=== PATIENT | female | born 1965 | race Caucasian/White ===

== ENCOUNTER 2018-09-09 06:31 | Day surgery (SDC) | payer BC ==
[~2018-09-09 06:31] MED LIST: Dextrose 5%-0.45% NaCl 1,000 ML IV SCH; Midazolam 1 MG/ML 2 ML SDV ONE; Sodium Chloride 0.9% 10 ML Syringe FLUSH PRN; fentaNYL 100 MCG/2 ML SDV ONE
[2018-09-09] MEDS ORDERED: Midazolam 1 MG/ML 2 ML SDV IV ONE ×3 (06:32→07:44)
[2018-09-09] MEDS ORDERED: fentaNYL 100 MCG/2 ML SDV IV ONE ×3 (06:32→07:43)
[2018-09-09] MEDS ORDERED: Dextrose 5%-0.45% NaCl 1,000 ML IV SCH (06:45)
--- NOTE | 2018-09-09 08:49 | OR ---
DATE: 09/09/2018 PROCEDURE: Esophagogastroduodenoscopy and multiple pinch biopsies. INSTRUMENT USED: [id number]-HQ190 Olympus video panendoscope. PREMEDICATIONS: Fentanyl 100 mcg intravenous, Versed 2 mg intravenous. The procedure was done under pulse oximetry, BP recording, and monitor technician. INDICATION: The patient with longstanding difficulties of heartburn, dyspepsia, abdominal bloating and pain, unexplained and not responsive to medical measures, long-term PPI. Esophagogastroduodenoscopy is performed for detection of any active erosive lesions, Hale esophagus and/or malignancy also under consideration, H. pylori status to be determined, small bowel biopsies to be obtained if indicated, endoscopic hemostasis therapy if needed. DESCRIPTION OF PROCEDURE: The scope was passed with ease. Adequate visualization of the esophagus was made from proximal to distal areas. No upper esophageal lesions identified. No distal esophageal stricture. No uphill or downhill esophageal varices. No Zuleyma-Gonzales tear. Grade A erosive changes were noted by Durham criteria. No esophageal polyp or tumor mass was identified. Sliding hiatal hernia was noted. Four-quadrant biopsies were taken from the area of Z-line and sent for any histopathologic evidence of intestinal metaplasia. No proximal gastric varices noted. Gastric fundus examination by retroflexion showed no polypoid lesions. No gastric ulcer, malignant mass, or vascular ectasia identified. Multiple pinch biopsies were taken from the gastric antrum and proximal body and sent for pyloric test for H. pylori and histopathology. Duodenal bulb showed no ulcer. Visualized second part of the duodenum was unremarkable. Multiple pinch biopsies, 4 in number, were taken from different areas of the second part of the duodenum, and tissues were also obtained from the duodenal bulb at 9 and 12 o'clock positions and sent for any histopathologic evidence of celiac disease. No bleeding was noted from any of the visualized areas at the completion of the examination. Photographs were taken of the duodenal bulb, gastric antrum, fundus, and distal esophagus. IMPRESSION: 1. Sliding hiatal hernia. 2. Grade A gastroesophageal reflux disease. The patient tolerated the procedure well. [facility] /[id number]
== END 2018-09-09 09:51 | disposition home or self-care (01) ==
LOC: DL.ENDO 06:31
PROVIDERS: ATTEND Internal Medicine Gastroenterology
DX: K29.50 Unspecified chronic gastritis without bleeding (principal); K31.89 Other diseases of stomach and duodenum; K44.9 Diaphragmatic hernia without obstruction or gangrene; K21.9 Gastro-esophageal reflux disease without esophagitis; E03.9 Hypothyroidism, unspecified; F17.210 Nicotine dependence, cigarettes, uncomplicated; E66.09 Other obesity due to excess calories; Z68.33 Body mass index [BMI] 33.0-33.9, adult; Z88.2 Allergy status to sulfonamides; Z88.5 Allergy status to narcotic agent
CPT/HCPCS: 43239; 87077; J2250; J3010; J7042

== ENCOUNTER 2018-09-16 05:22 | Day surgery (SDC) | payer BC ==
[2018-09-16] MEDS ORDERED: fentaNYL 100 MCG/2 ML SDV IV ONE ×7 (05:23→06:45)
[2018-09-16] MEDS ORDERED: Midazolam 1 MG/ML 2 ML SDV IV ONE ×10 (05:23→07:02)
[2018-09-16] MEDS ORDERED: Dextrose 5%-0.45% NaCl 1,000 ML IV SCH (06:15)
[2018-09-16] MEDS ORDERED: fentaNYL 100 MCG/2 ML SDV ONE (06:15)
[2018-09-16] MEDS ORDERED: Midazolam 1 MG/ML 2 ML SDV ONE ×2 (06:15→07:01)
--- NOTE | 2018-09-16 09:37 | OR ---
DATE: 09/16/2018 PROCEDURE: Total colonoscopy and cold snare polypectomy. INSTRUMENT USED: [id number]-H190DL Olympus video colonoscope. PREMEDICATIONS: Fentanyl 200 mcg intravenous, Versed 7 mg intravenous. The procedure was done under pulse oximetry, BP recording, and construction executive. INDICATION: The patient with longstanding lower abdominal pain, unexplained and not responsive to medical measures. Colonoscopic examination is done for detection of any polypoid lesions and removal, endoscopic hemostasis therapy if needed. DESCRIPTION OF PROCEDURE: Initial rectal exam was unremarkable. Rigid anoscopy was normal. The colonoscope was passed with ease. Numerous scattered diverticula were noted in the distal left colon. The colon was found to be tortuous and redundant. The scope was passed up to the area of cecum. No bleeding was noted from any of the visualized areas at the commencement of the examination. A 5 mm sized benign-appearing polyp was noted at the proximal ascending colon, photograph was taken. Biopsy was obtained for histopathology, cold snare polypectomy was done. There was scattered fecal material and limitation of the study especially at the cecum and ascending colon. No stricture. No vascular ectasia. No large isolated ulcerations seen. No evidence of diffuse inflammatory bowel disease in the form of friability, contact bleeding, or ulcerations. Probing the proximal sides of folds and flexures, using adequate distention and clearing of the stool material, withdrawal of the scope was made, cecum to rectum time over 6 minutes. No bleeding was noted from any of the visualized areas at the completion of examination. IMPRESSION: 1. Diverticulosis. 2. Ascending colon polyp. The patient tolerated the procedure well. [facility] /[id number]
== END 2018-09-16 09:25 | disposition home or self-care (01) ==
LOC: DL.ENDO 05:22
PROVIDERS: ATTEND Internal Medicine Gastroenterology
DX: D12.2 Benign neoplasm of ascending colon (principal); K57.30 Diverticulosis of large intestine without perforation or abscess without bleeding; K63.89 Other specified diseases of intestine
CPT/HCPCS: 45385; J2250; J3010; J7042

== ENCOUNTER 2024-03-13 02:01 | Emergency (ER) | payer BC ==
[2024-03-13] MEDS: Ketorolac 30 MG/ML SDV IVPUSH ONE (03:08)
[2024-03-13 03:21] LABS: BASOPHILS PERCENT AUTO 0.4 % (0.0-1.0); EOSINOPHILS PERCENT AUTO 0.6 % (1.0-3.0); HEMATOCRIT 43.6 % (37.0-47.0); HEMOGLOBIN 14.1 g/dL (12.0-16.0); LYMPHOCYTES PERCENT AUTO 14.3 % (20.5-50.1); MEAN CORPUSCULAR HEMOGLOBIN 29.1 pg (27.0-34.0); MEAN CORPUSCULAR HGB CONC 32.3 g/dL (33.0-35.0); MEAN CORPUSCULAR VOLUME 90.1 fL (80-100); NEUTROPHILS PERCENT AUTO 76.7 % (42.2-75.2); PLATELET COUNT,PLT 242 10^3/uL (150-450); RED BLOOD CELL COUNT 4.84 10^6/uL (4.2-5.4); WHITE BLOOD CELL COUNT,WBC 14.1 10^3/uL (5.0-10.0)
[2024-03-13 03:23] LABS: APPEARANCE,URINE CLEAR (CLEAR); BILIRUBIN,URINE NEGATIVE (NEGATIVE); COLOR,URINE YELLOW (YELLOW); GLUCOSE,URINE NEGATIVE (NEGATIVE); KETONES,URINE NEGATIVE (NEGATIVE); LEUKOCYTE ESTERASE,URINE NEGATIVE (NEGATIVE); NITRITE,URINE NEGATIVE (NEGATIVE); OCCULT BLOOD,URINE NEGATIVE (NEGATIVE); PH,URINE 6.5 (5.0-9.0); PROTEIN,URINE NEGATIVE (NEGATIVE); UROBILINOGEN,URINE 0.2 mg/dL (0.2-1.0)
[2024-03-13] MEDS: Sodium Chloride 0.9% 1,000 ML IV ONE (03:23)
[2024-03-13 03:56] LABS: A/G RATIO 1.2; ALBUMIN 3.9 g/dL (3.4-5.0); ANION GAP 11.8 mEq/L (7-13); BILIRUBIN TOTAL 0.5 mg/dL (0.2-1.0); BUN/CREATININE RATIO 13.6 (No establ ref range); CALCIUM 9.2 mg/dL (8.5-10.1); CREATININE 1.03 mg/dL (0.55-1.02); EST CRCL DRUG DOSING (CG) 61.52 mL/min; LACTIC ACID 0.8 mmol/L (0.4-2.0); MAGNESIUM 1.8 mg/dL (1.8-2.4); POTASSIUM,K 3.8 mmol/L (3.5-5.1); PROTEIN TOTAL,TP 7.2 g/dL (6.4-8.2)
[2024-03-13] MEDS: Iopamidol 612 MG/ML 100 ML Bottle IVPUSH ONE (05:57)
[2024-03-13] MEDS: Acetaminophen 325 MG Tab PO ONE (06:49)
[2024-03-13] MEDS: metroNIDAZOLE/Normal Saline 500 MG in Premix Bag 1 BAG IV ONE (06:50)
[2024-03-13] MEDS: Ciprofloxacin in D5W 400 MG in Premix Bag 1 BAG IV ONE (07:10)
== END 2024-03-13 08:10 | disposition home or self-care (01) ==
LOC: DL.ED 02:01
DX: K57.32 Diverticulitis of large intestine without perforation or abscess without bleeding (principal); K21.9 Gastro-esophageal reflux disease without esophagitis; E03.9 Hypothyroidism, unspecified; E66.9 Obesity, unspecified; Z68.32 Body mass index [BMI] 32.0-32.9, adult; Z90.49 Acquired absence of other specified parts of digestive tract; Z90.710 Acquired absence of both cervix and uterus; F17.210 Nicotine dependence, cigarettes, uncomplicated; Z79.899 Other long term (current) drug therapy; Z91.048 Other nonmedicinal substance allergy status; Z88.2 Allergy status to sulfonamides; Z88.5 Allergy status to narcotic agent
CPT/HCPCS: 36415; 74177; 80053; 81003; 83605; 83690; 83735; 84484; 85025; 93005; 93010; 96361; 96365; 96368; 96375; 99284; 99284-25; A9270-GY; J0744; J1836; J1885; J7030; Q9967